=== PATIENT | female | born 1965 | race Two or more races ===

== ENCOUNTER 2023-07-29 15:51 | Emergency (ER) | payer BC ==
[~2023-07-29] VITALS: Ht 170.2 cm; Wt 81.6 kg
[2023-07-29 16:00] VITALS: RESP 16; O2SAT 97
[2023-07-29] MEDS ORDERED: SODIUM CHLORIDE 0.9% 1,000 ML IVB ONE (16:15)
[2023-07-29 16:48] LABS: Urine Bacteria FEW /hpf (None Seen); Urine Blood Negative /uL (Negative); Urine Clarity Clear (Clear); Urine Color Colorless (Yellow); Urine Protein, UAD Negative (Negative); Urine Specific Gravity 1.008 (1.001-1.035); Urine Urobilinogen Normal (Negative); Urine WBC 7 /hpf (0 - 5); Urine pH 6.5 (5.0-8.0)
[2023-07-29 17:00] LABS: Hematocrit 45.8 % (36.0-46.0); Hemoglobin 15.6 g/dL (12.2-16.2); Mean Corpuscular Hemoglobin 31.1 pg (28.0-32.0); Mean Corpuscular Hgb Conc. 34.2 g/dL (32.0-36.0); Mean Corpuscular Volume 90.9 fL (80.0-100.0); Red Blood Cells 5.03 10^6/uL (4.0-5.20); Red Cell Distribution Width 12.9 % (11.8-14.3); White Blood Cell 5.4 10^3/uL (4.4-10.8)
[2023-07-29 17:13] LABS: Basophils % (manual) 0 (0.0-2.0); Blast Cells 0; Eosinophils % (manual) 0 (0-7); Metamyelocytes % 0; Myelocytes % 0; Promyelocytes % 0; Reactive Lymphocytes 0
[2023-07-29] MEDS ORDERED: MORPHINE SULFATE 4 MG/ML SYR/VIAL IV ONE (17:15)
[2023-07-29] MEDS ORDERED: ONDANSETRON HCL 4 MG/2 ML VIAL IV ONE (17:15)
[2023-07-29 17:22] LABS: Alanine Aminotransferase 28 U/L (7-40); Albumin 4.7 g/dL (3.2-4.8); Alkaline Phosphatase 49 U/L (46-116); Anion Gap 7 (5-15); Aspartate Aminotransferase 13 U/L (13-40); BUN/Creatinine Ratio 10.7 (10.0-20.0); Blood Urea Nitrogen 11 mg/dL (9-23); Calcium 9.4 mg/dL (8.7-10.4); Carbon Dioxide 27 mmol/L (20-30); Chloride 106 mmol/L (98-107); Glucose 96 mg/dL (74-106); INR 1.02 (0.9-1.15); Lipase 42 U/L (12-53); Magnesium 2.2 mg/dL (1.6-2.6); Partial Thromboplastin Time 27.1 SEC (24.5-34.5); Potassium 4.2 mmol/L (3.5-5.1); Prothrombin Time 10.7 sec (9.3-11.8); Sodium 140 mmol/L (136-145)
[2023-07-29 17:23] LABS: Bilirubin, Total 0.7 mg/dL (0.2-1.0); Total Protein 7.3 g/dL (5.7-8.2)
[2023-07-29 17:27] LABS: Band Neutrophils % (manual) 0; Lymphocytes % (manual) 59 (10.0-50.0); Monocytes % (manual) 7 (0-12); Platelet Estimate Adequate; RBC Morphology Normal
[2023-07-29 18:15] VITALS: TEMP 97.9; O2SAT 96
[2023-07-29] MEDS ORDERED: PIPERACILLIN-TAZOB 3.375GM 100 ML IV ONE (18:15)
[2023-07-29] MEDS ORDERED: KETOROLAC TROMETH 30 MG/ML 1ML VIAL IV ONE (18:15)
[2023-07-29] MEDS ORDERED: METR375C PO (18:33)
[2023-07-29] MEDS ORDERED: ACET-6 PO (18:33)
[2023-07-29] MEDS ORDERED: IBUP-1456 PO (18:33)
[2023-07-29] MEDS ORDERED: CIPR-173 PO (18:33)
[2023-07-29] MEDS ORDERED: MORPHINE SULFATE INJ 2 MG/ml SYRG IV ONE (19:30)
[2023-07-29 19:41] VITALS: BP 105/78; PULSE 80; RESP 18
== END 2023-07-30 01:05 | disposition home or self-care (01) ==
LOC: ER 15:51
DX: N39.0 Urinary tract infection, site not specified (principal); K63.89 Other specified diseases of intestine
CPT/HCPCS: 36415; 74176; 80053; 81001; 81025; 82962; 83605; 83690; 83735; 84484; 85007; 85027; 85610; 85730; 87040; 96361; 96365; 96375; 96376; 99285; J1885; J2270; J2405; J2543; J7030